=== PATIENT | male | born 1990 | race American Indian/Alaskan Native ===

== ENCOUNTER 2020-04-17 11:19 | Emergency (ER) | payer MEDICAID ==
[2020-04-17 11:27] VITALS: BP 125/81
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
[2020-04-17] MEDS ORDERED: DIPHtheria,PERTUSSIS(ACELL),TETANUS VACCINE/PF 0.5 ML VIAL IM ONE (12:55)
[2020-04-17] MEDS ORDERED: LIDOCAINE (2%) 20 MG/1 ML VIAL 20 ML MDV INFILTRATI ONE (13:11)
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
== END 2020-04-17 15:54 | disposition home or self-care (01) ==
LOC: ED 11:19
DX: S41.011A Laceration without foreign body of right shoulder, initial encounter (principal); F25.9 Schizoaffective disorder, unspecified; Z79.899 Other long term (current) drug therapy; W45.8XXA Other foreign body or object entering through skin, initial encounter; Y93.89 Activity, other specified; Y92.89 Other specified places as the place of occurrence of the external cause; Y99.8 Other external cause status
CPT/HCPCS: 90471; 90715

== ENCOUNTER 2020-06-26 09:49 | Emergency (ER) | payer MEDICAID ==
[2020-06-26 10:04] VITALS: BP 135/90
--- NOTE | 2020-06-26 10:09 | Emergency Department Report ---
Chief Complaint: Urogenital-Male Stated Complaint: STD Time Seen by Provider: 06/26/20 10:07 - HPI History of Present Illness: Patient is a 29-year-old male presents emergency room for a "syphilis shot." He states that he is actually not sure if he has an STD. He states that he did have unprotected intercourse and is concerned for STDs and that is why he believes he needs a syphilis shot. He denies any abdominal pain, pain or swelling in the testicles, fever, dysuria, hematuria, urinary retention, lesions, blisters. no PMHx. no allergies to meds. vss on exam: Non toxic appearing, no acute distress atraumatic, normocephalic normal appearance of the eyes, EOMI, no periorbital edema or ecchymosis moist mucus membranes no respiratory distress, no accessory muscle use A&O x4, normal gait :deferred Patient is presenting for routine STD panel He is not sure if he has STDs but would like to be tested and treated He is specifically requesting a "syphilis shot" Patient will be referred to a clinic and the health department in order to receive a full STD panel and treatment as appropriate advised pt please follow up with the clinic or health department for full STD panel. have any partner tested and treated as well. avoid sexual intercourse. r eturn to the emergency room for any new or worsening symptoms. discussed strict return precautions pt referred to the appropriate resources medical screening exam performed and there is no threat to life or limb at this time - Exam Vital Signs: Vital Signs 06/26/20 10:03 Temperature 98.8 F Pulse Rate 107 H Respiratory 18 Rate Blood Pressure 135/90 O2 Sat by Pulse 99 Oximetry MSE screening note: Focused history and physical exam performed. ED Disposition for MSE Clinical Impression: Concern about STD in male without diagnosis Disposition: Z-07 MED SCREENING EXAM-LEFT Is pt being admited?: No Does the pt Need Aspirin: No Condition: Stable Instructions: Safe Sex Additional Instructions: please follow up with the clinic or health department for full STD panel. have any partner tested and treated as well. avoid sexual intercourse. return to the emergency room for any new or worsening symptoms. Referrals: [facility] [Outside] - 2-3 Days Time of Disposition: 10:08 Print Language: DJIBOUTIAN
== END 2020-06-26 10:45 | disposition left against medical advice (07) ==
LOC: ED 09:49
DX: Z20.2 Contact with and (suspected) exposure to infections with a predominantly sexual mode of transmission (principal); Z53.21 Procedure and treatment not carried out due to patient leaving prior to being seen by health care provider

== ENCOUNTER 2020-07-20 16:52 | Emergency (ER) | payer MEDICAID ==
[2020-07-20 17:28] VITALS: BP 151/83
[2020-07-20] MEDS ORDERED: IBUPROFEN 800 MG TAB PO ONE (20:40)
[2020-07-20] MEDS ORDERED: LIDOCAINE VISCOUS 2% 15 ML ORAL LIQD PO ONE (20:40)
[2020-07-20] MEDS ORDERED: ALUM-MAG HYDROXIDE-SIMETHICONE 200-200-20MG/5ML ORAL LIQD 30 ML PO ONE (20:40)
--- NOTE | 2020-07-20 21:59 | Emergency Department Report ---
ED General Adult HPI - General Chief complaint: Chest Pain Stated complaint: CHEST PAIN Time Seen by Provider: 07/20/20 20:38 Source: patient Mode of arrival: Ambulatory Limitations: No Limitations - History of Present Illness Initial comments: Patient is a 30-year-old male who presents for epigastric pain x3 days. States symptoms appear as heartburn rated 4/10. Symptoms are exacerbated by movement p.o. and position. Symptoms are relieved by sitting upright. There is no dizziness, lightheadedness, vomiting, shortness of breath, diaphoresis or back pain. Severity scale (0 -10): 3 - Related Data Previous Rx's Medication Instructions Recorded Last Taken Type cephALEXin [Keflex] 500 mg PO Q6HR #40 capsule 04/17/20 Unknown Rx traMADoL [Ultram] 50 mg PO Q6HR PRN #20 tablet 04/17/20 Unknown Rx Famotidine [Pepcid] 20 mg PO BID #30 tablet 07/20/20 Unknown Rx Ibuprofen [Motrin 800 MG tab] 800 mg PO Q8HR PRN #30 tablet 07/20/20 Unknown Rx Allergies Allergy/AdvReac Type Severity Reaction Status Date / Time No Known Allergies Allergy Unverified 04/17/20 11:24 ED Review of Systems ROS: Stated complaint: CHEST PAIN Other details as noted in HPI Constitutional: denies: chills, fever Eyes: denies: eye pain, eye discharge, vision change ENT: denies: ear pain, throat pain Respiratory: denies: cough, shortness of breath, wheezing Cardiovascular: as per HPI, chest pain (epigastric tenderness ) Endocrine: no symptoms reported Gastrointestinal: denies: abdominal pain, nausea, vomiting, diarrhea Genitourinary: denies: urgency, dysuria Musculoskeletal: denies: back pain, joint swelling, arthralgia Skin: denies: rash, lesions Neurological: denies: headache, weakness, paresthesias Psychiatric: denies: anxiety, depression Hematological/Lymphatic: denies: easy bleeding, easy bruising ED Past Medical Hx - Past Medical History Hx Psychiatric Treatment: Yes (Schizophrenia) - Surgical History Past Surgical History?: No - Medications Home Medications: Home Medications Medication Instructions Recorded Confirmed Last Taken Type cephALEXin [Keflex] 500 mg PO Q6HR #40 capsule 04/17/20 Unknown Rx traMADoL [Ultram] 50 mg PO Q6HR PRN #20 tablet 04/17/20 Unknown Rx Famotidine [Pepcid] 20 mg PO BID #30 tablet 07/20/20 Unknown Rx Ibuprofen [Motrin 800 MG tab] 800 mg PO Q8HR PRN #30 tablet 07/20/20 Unknown Rx ED Physical Exam - General Limitations: No Limitations General appearance: alert, in no apparent distress - Head Head exam: Present: atraumatic, normocephalic - Eye Eye exam: Present: normal appearance, EOMI Pupils: Present: normal accommodation - ENT ENT exam: Present: mucous membranes moist - Neck Neck exam: Present: normal inspection - Respiratory Respiratory exam: Present: normal lung sounds bilaterally. Absent: respiratory distress, wheezes, stridor, chest wall tenderness - Cardiovascular Cardiovascular Exam: Present: regular rate, normal rhythm, normal heart sounds. Absent: systolic murmur, diastolic murmur, rubs, gallop - GI/Abdominal GI/Abdominal exam: Present: soft, normal bowel sounds. Absent: distended, tenderness, guarding, rebound, rigid, bruit, hernia - Rectal Rectal exam: Present: deferred - Extremities Exam Extremities exam: Present: normal inspection, full ROM. Absent: tenderness, pedal edema - Back Exam Back exam: Present: normal inspection, full ROM. Absent: tenderness, CVA tenderness (R), CVA tenderness (L) - Neurological Exam Neurological exam: Present: alert, oriented X3, CN II-XII intact, normal gait - Psychiatric Psychiatric exam: Present: normal affect, normal mood - Skin Skin exam: Present: warm, dry, intact, normal color. Absent: rash ED Course Vital Signs 07/20/20 17:18 Temperature 98.1 F Pulse Rate 97 H Respiratory 18 Rate Blood Pressure 151/83 [Right] O2 Sat by Pulse 100 Oximetry ED Medical Decision Making - EKG Data EKG shows normal: sinus rhythm Rate: normal - EKG Data Interpretation: normal EKG (NSR NO STEMI ,interp by ed attending.) - Medical Decision Making Symptoms relieved by medications given in ed. Ekg: NSR no STEMI, interp by ed attending, this is likely GERD, symptoms are relieved at this time, pt states ready for dc to home , he is toleratilng po intake without symptoms. plan dc to home in stable condition at this time. Critical care attestation.: If time is entered above; I have spent that time in minutes in the direct care of this critically ill patient, excluding procedure time. ED Disposition Clinical Impression: GERD (gastroesophageal reflux disease) Qualifiers: Esophagitis presence: without esophagitis Qualified Code(s): K21.9 - Gastro- esophageal reflux disease without esophagitis Disposition: TO HOME OR SELFCARE Is pt being admited?: No Does the pt Need Aspirin: No Condition: Stable Instructions: Food Choices for Gastroesophageal Reflux Disease, Adult, Heartburn, [id number] Prescriptions: Ibuprofen [Motrin 800 MG tab] 800 mg PO Q8HR PRN #30 tablet PRN Reason: pain Famotidine [Pepcid] 20 mg PO BID #30 tablet Referrals: SHELDON IVERSON MD [Staff Physician] - 3-5 Days Forms: Work/School Release Form(ED) Time of Disposition: 21:56
== END 2020-07-20 22:10 | disposition home or self-care (01) ==
LOC: ED 16:52
DX: K21.9 Gastro-esophageal reflux disease without esophagitis (principal); F20.9 Schizophrenia, unspecified; Z79.899 Other long term (current) drug therapy
CPT/HCPCS: 93005; 99282

== ENCOUNTER 2021-05-02 05:39 | Emergency (ER) | payer MEDICAID ==
[2021-05-02 06:22] VITALS: BP 140/73
[2021-05-02] MEDS ORDERED: FAMOTIDINE 20 MG TAB PO ONE (07:25)
[2021-05-02] MEDS ORDERED: ACETAMINOPHEN 325 MG TAB PO ONE (07:25)
[2021-05-02] MEDS ORDERED: ALUM-MAG HYDROXIDE-SIMETHICONE 200-200-20MG/5ML ORAL LIQD 30 ML PO ONE (07:25)
--- NOTE | 2021-05-02 07:26 | Emergency Department Report ---
ED General Adult HPI - General Chief complaint: Pain General Stated complaint: CHEST & FEET PAIN PUI?: No Time Seen by Provider: 05/02/21 07:14 Source: patient Mode of arrival: Ambulatory Limitations: No Limitations - History of Present Illness Initial comments: 30-year-old male who denies any significant past medical history presents to the ER today with complaints of epigastric pain and substernal chest pain which he has been having for the past 6 months. Patient describes it as a burning pain which seems to be worse when he eats food. He states that he has been vomiting every day with the pain. He states that on average he vomits about twice a day. He denies any coffee-ground emesis or hematemesis. He states that he has been having intermittent episodes of diarrhea, but without mucus, hematochezia or melena. He reports no shortness of breath cough or wheezing. Patient states that he has been to the ER a couple times with symptoms but he has not followed up with a primary care doctor or GI specialist. He states that he drinks alcohol occasionally. He denies NSAID abuse. He denies any illicit drug use. He denies any history of abdominal surgeries Patient also complains of bilateral feet pain which he states that he has been having for "a while". He states that the pain is moved to the dorsal and the plantar aspect of his feet. He denies any injury but he admits that he walks "a lot". He denies any swelling, erythema or bruising. He states that the pain is worse with ambulation or weightbearing. patient denies being homeless, he states that he lives with his mom. He has not followed up with a embedded systems software developer PCP for his foot pain. He states that he has not been taking anything for pain. He states that he is epigastric pain, chest pain and bilateral feet pain at the same pain that he has been having for the past month, different or worse today. MD Complaint: Epigastric pain/chest pain/bilateral feet pain -: month(s) (at least 6 mths) Severity scale (0 -10): 0 - Related Data Previous Rx's Medication Instructions Recorded Last Taken Type cephALEXin [Keflex] 500 mg PO Q6HR #40 capsule 04/17/20 Unknown Rx traMADoL [Ultram] 50 mg PO Q6HR PRN #20 tablet 04/17/20 Unknown Rx Ibuprofen [Motrin 800 MG tab] 800 mg PO Q8HR PRN #30 tablet 07/20/20 Unknown Rx Acetaminophen [Acetaminophen 8 650 mg PO Q8H #30 tablet.er 05/02/21 Unknown Rx Hour] Famotidine [Pepcid] 20 mg PO BID #30 tablet 05/02/21 Unknown Rx Omeprazole Magnesium [PriLOSEC Otc] 20 mg PO BID #60 tab 05/02/21 Unknown Rx Ondansetron [Zofran Odt] 4 mg PO Q8HR PRN #15 tab.rapdis 05/02/21 Unknown Rx Allergies Allergy/AdvReac Type Severity Reaction Status Date / Time No Known Allergies Allergy Unverified 04/17/20 11:24 ED Review of Systems ROS: Stated complaint: CHEST & FEET PAIN Other details as noted in HPI Comment: All other systems reviewed and negative Constitutional: denies: chills, fever Eyes: denies: eye pain, eye discharge, vision change ENT: denies: ear pain, throat pain Respiratory: denies: cough, shortness of breath, SOB with exertion, SOB at rest, wheezing Cardiovascular: chest pain. denies: palpitations, dyspnea on exertion, edema, syncope, paroxysmal nocturnal dyspnea Gastrointestinal: abdominal pain, nausea, vomiting. denies: diarrhea, constipation, hematemesis, hematochezia Genitourinary: denies: urgency, dysuria, frequency, hematuria, discharge Musculoskeletal: denies: back pain, joint swelling, arthralgia Skin: denies: rash, lesions, change in color, change in hair/nails, pruritus Neurological: denies: headache, weakness, paresthesias Psychiatric: denies: anxiety, depression, auditory hallucinations, visual hallucinations, homicidal thoughts, suicidal thoughts Hematological/Lymphatic: denies: easy bleeding, easy bruising, swollen glands ED Past Medical Hx - Past Medical History Hx Psychiatric Treatment: Yes (Schizophrenia) - Social History Smoking Status: Never Smoker Substance Use Type: None - Medications Home Medications: Home Medications Medication Instructions Recorded Confirmed Last Taken Type cephALEXin [Keflex] 500 mg PO Q6HR #40 capsule 04/17/20 Unknown Rx traMADoL [Ultram] 50 mg PO Q6HR PRN #20 tablet 04/17/20 Unknown Rx Ibuprofen [Motrin 800 MG tab] 800 mg PO Q8HR PRN #30 tablet 07/20/20 Unknown Rx Acetaminophen [Acetaminophen 8 650 mg PO Q8H #30 tablet.er 05/02/21 Unknown Rx Hour] Famotidine [Pepcid] 20 mg PO BID #30 tablet 05/02/21 Unknown Rx Omeprazole Magnesium [PriLOSEC Otc] 20 mg PO BID #60 tab 05/02/21 Unknown Rx Ondansetron [Zofran Odt] 4 mg PO Q8HR PRN #15 tab.rapdis 05/02/21 Unknown Rx ED Physical Exam - General Limitations: No Limitations General appearance: alert, in no apparent distress - Head Head exam: Present: atraumatic, normocephalic, normal inspection - Eye Eye exam: Present: normal appearance, PERRL, EOMI Pupils: Present: normal accommodation - Neck Neck exam: Present: normal inspection, full ROM - Respiratory Respiratory exam: Present: normal lung sounds bilaterally. Absent: respiratory distress, wheezes, rales, rhonchi, stridor, chest wall tenderness - Cardiovascular Cardiovascular Exam: Present: regular rate, normal rhythm, normal heart sounds - GI/Abdominal GI/Abdominal exam: Present: soft, tenderness (Mild epigastric tenderness without guarding or rebound). Absent: distended - Extremities Exam Extremities exam: Present: full ROM, other (No apparent tenderness to palpation to the dorsal or plantar aspect of the feet. No swelling, erythema or bruising. Thickened toenails, and dry thickened skin in between the toes.). Absent: tenderness, pedal edema, joint swelling, calf tenderness - Neurological Exam Neurological exam: Present: alert, oriented X3, CN II-XII intact, normal gait. Absent: motor sensory deficit - Psychiatric Psychiatric exam: Present: normal affect, flat affect. Absent: homicidal ideation, suicidal ideation - Skin Skin exam: Present: intact ED Course Vital Signs 05/02/21 06:21 Temperature 99.4 F Pulse Rate 101 H Respiratory 18 Rate Blood Pressure 140/73 [Left] O2 Sat by Pulse 98 Oximetry ED Medical Decision Making - Lab Data Result diagrams: 05/02/21 07:46 05/02/21 07:46 - EKG Data EKG shows normal: sinus rhythm Rate: normal (94) - Radiology Data Radiology results: report reviewed Patient: EDWIN PASTOR MR#: [id number] : 1990 A cct:[id number] Age/Sex: 30 / M ADM Date: 05/02/21 Loc: ED Attending Dr: Ordering Physician: RAVEN DELUCA Date of Service: 05/02/21 Procedure(s): XR chest routine 2V Accession Number(s): [id number] cc: RAVEN DELUCA Fluoro Time In Minutes: CHEST 2 VIEWS INDICATION: Chest pain. COMPARISON: None FINDINGS: Support devices: None. Heart: Within normal limits. Lungs/pleura: No acute air space or interstitial disease. No pneumothorax. Additional findings: None. IMPRESSION: No acute findings. Signer Name: Travis Dang Jr, MD Signed: 05/02/2021 7:51 AM Workstation Name: [id number] Transcribed By: TTR Dictated By: TRAVIS DANG JR, MD Electronically Authenticated By: TRAVIS DANG JR, MD Signed Date/Time: 05/02/21750 DD/ 0 TD/TT: - Medical Decision Making 30-year-old male who denies any significant past medical history presents to the ER today with complaints of epigastric pain and substernal chest pain which he has been having for the past 6 months. Patient describes it as a burning pain which seems to be worse when he eats food. He states that he has been vomiting every day with the pain. He states that on average he vomits about twice a day. He denies any coffee-ground emesis or hematemesis. He states that he has been having intermittent episodes of diarrhea, but without mucus, hematochezia or melena. He reports no shortness of breath cough or wheezing. Patient states that he has been to the ER a couple times with symptoms but he has not followed up with a primary care doctor or GI specialist. He states that he drinks alcohol occasionally. He denies NSAID abuse. He denies any illicit drug use. He denies any history of abdominal surgeries Patient also complains of bilateral feet pain which he states that he has been having for "a while". He states that the pain is moved to the dorsal and the plantar aspect of his feet. He denies any injury but he admits that he walks "a lot". He denies any swelling, erythema or bruising. He states that the pain is worse with ambulation or weightbearing. patient denies being homeless, he states that he lives with his mom. He has not followed up with a embedded systems software developer PCP for his foot pain. He states that he has not been taking anything for pain. He states that he is epigastric pain, chest pain and bilateral feet pain at the same pain that he has been having for the past month, different or worse today. 0903: Chest x-ray shows nothing acute. All labs all unremarkable. EKG shows normal sinus rhythm with a rate of 94 and no other abnormality. Patient currently sleeping comfortably in the recliner, he is easily arousable, is not toxic or ill-appearing not in any acute pain or respiratory distress. He does have a weird flat affect there is a question of whether he has underlying psych disorder. Currently he is mentally stable, no SI or HI and no hallucinations. He has a nonsurgical abdominal exam. Patient symptoms have been chronic including his bilateral feet pain. Patient will need follow-up with GI for an endoscopy to rule out H. pylori and peptic ulcer disease as well as referral to embedded systems software developer for his chronic foot pain. At this time he is history, exam and current condition does not suggest perforation, appendicitis, pancreatitis, diverticulitis, acute coronary syndrome, PE, sepsis or any other emergent conditions warranting any additional testing, admission or specialist consult at this time. Discussed all lab results with patient. Discussed treatment plan and recommendation for follow-up with patient. He expressed understanding of all instructions and agree with plan. Patient was stable at time of discharge Critical care attestation.: If time is entered above; I have spent that time in minutes in the direct care of this critically ill patient, excluding procedure time. ED Disposition Clinical Impression: Nonspecific chest pain, Epigastric abdominal pain, Gastritis, Chronic pain of both feet, Chronic pain Disposition: 01 HOME / SELF CARE / HOMELESS Is pt being admited?: No Does the pt Need Aspirin: No Condition: Stable Instructions: Gastritis, Adult, [id number], Nonspecific Chest Pain, Adult, Foot Pain Additional Instructions: Your epigastric pain and chest pain could be related to gastritis/GERD and you will be prescribed omeprazole and Pepcid to see if that will help your symptoms but I do recommend that you follow-up with the GI specialist listed on your discharge instructions for further evaluation and possible endoscopy to rule out other causes including peptic ulcer disease. I also recommend that she follow- up with the embedded systems software developer for further evaluation of her chronic bilateral foot p ain. In the meantime you can take the Tylenol as needed for pain and I recommend that you try not walking as much which can be aggravating your foot pain. Return to the ER if your symptoms changes or worsens in any way. Prescriptions: Acetaminophen [Acetaminophen 8 Hour] 650 mg PO Q8H #30 tablet.er Famotidine [Pepcid] 20 mg PO BID #30 tablet Omeprazole Magnesium [PriLOSEC Otc] 20 mg PO BID #60 tab Ondansetron [Zofran Odt] 4 mg PO Q8HR PRN #15 tab.rapdis PRN Reason: nausea/vomiting Referrals: [facility] [Provider Group] - 3-5 Days (Branch Lending Manager) [facility] [Provider Group] - 3-5 Days (Primary care physician) CAMERON GOODSON DPM [Staff Physician] - 3-5 Days (Fire Claims Adjuster (child welfare specialist))
--- NOTE | 2021-05-02 07:56 | XRay Report ---
CHEST 2 VIEWS INDICATION: Chest pain. COMPARISON: None FINDINGS: Support devices: None. Heart: Within normal limits. Lungs/pleura: No acute air space or interstitial disease. No pneumothorax. Additional findings: None. IMPRESSION: No acute findings. Signer Name: Travis Dang Jr, MD Signed: 05/02/2021 7:51 AM Workstation Name: [id number]
[2021-05-02 08:11] LABS: Hematocrit 41.7 % (35.5-45.6); Hemoglobin 13.8 gm/dl (11.8-15.2); Mean Corpuscular HGB Conc 33 % (32-34); Mean Corpuscular Volume 81 fl (84-94); Platelet Count 221 K/mm3 (140-440); Red Blood Count 5.16 M/mm3 (3.65-5.03); Red Cell Distribution Width 15.7 % (13.2-15.2)
[2021-05-02 08:33] LABS: Alanine Aminotransferase 18 units/L (7-56); Albumin 4.2 g/dL (3.9-5); BUN/Creatinine Ratio 11; Blood Urea Nitrogen 11 mg/dL (9-20); Calcium 8.9 mg/dL (8.4-10.2); Hemolysis Index 8
[2021-05-02 16:34] LABS: Band Neutrophils # (Manual) 0.2 K/mm3; Total Cells Counted 100
[2021-05-02 16:35] LABS: Platelet Estimate Consistent w Auto; RBC Morphology Normal
--- NOTE | 2021-05-09 13:55 | Electrocardiograph Report ---
[facility] Test Date: 2021-05-02 Test Time: 07:43:40 Pat Name: EDWIN PASTOR Department: Room: Gender: M Station Mechanic: OLIVER : 1990 Requested By: RAVEN DELUCA Order Number: [id number] Reading MD: Albertina Freeman Measurements Intervals [place] Rate: 94 P: 102 IN: 64 QRS: 46 QRSD: 90 T: -4 QT: 384 QTc: 482 Interpretive Statements Sinus rhythm No previous ECG available for comparison Electronically Signed On 05-09-2021 13:55:09 EDT by Albertina Freeman
== END 2021-05-02 09:22 | disposition home or self-care (01) ==
LOC: ED 05:39
DX: K29.70 Gastritis, unspecified, without bleeding (principal); M79.672 Pain in left foot; M79.671 Pain in right foot; R07.89 Other chest pain; G89.29 Other chronic pain; F20.9 Schizophrenia, unspecified
CPT/HCPCS: 36415; 71046; 80053; 83690; 85007; 85025; 93005; 99283